=== PATIENT | female | born 1980 | race Caucasian/White ===

== ENCOUNTER → 2017-07-19 | Outpatient (CLI) | payer BC ==
[~2017-07-19] MED LIST: PROG100C16 PO
[2017-07-19 11:10] LABS: BASOPHILS # (AUTO) 0.01 x10^3/uL (0-0.1); BASOPHILS % (AUTO) 0 % (0-1); EOSINOPHILS # (AUTO) 0.03 x10^3/uL (0-0.4); EOSINOPHILS % (AUTO) 0 % (1-7); LYMPHOCYTES # (AUTO) 0.96 x10^3/uL (1-3.4); LYMPHOCYTES % (AUTO) 11 % (22-44); MD NO; MEAN CORPUSCULAR HEMOGLOBIN 31.3 pg (27.0-34.8); MEAN CORPUSCULAR HGB CONC 33.4 g/dL (32.4-35.8); MEAN CORPUSCULAR VOLUME 93.7 fL (80-100); MEAN PLATELET VOLUME 9.4 fL (7.4-10.4); MONOCYTES # (AUTO) 0.39 x10^3/uL (0.2-0.8); MONOCYTES % (AUTO) 5 % (2-9); NEUTROPHILS # (AUTO) 7.34 x10^3/uL (1.8-6.8); NEUTROPHILS % (AUTO) 84 % (42-75); PLATELET COUNT 180 x10^3/uL (130-400); RED BLOOD COUNT 4.53 x10^6/uL (3.82-5.3); RED CELL DISTRIBUTION WIDTH 13.4 % (9.6-15.2)
== END | disposition home or self-care (01) ==
LOC: STAR 10:07
PROVIDERS: ATTEND Obstetrics & Gynecology
DX: Z01.818 Encounter for other preprocedural examination (principal); N92.0 Excessive and frequent menstruation with regular cycle
CPT/HCPCS: 36415; 84703; 85025

== ENCOUNTER 2017-07-24 08:14 | Day surgery (SDC) | payer BC ==
[~2017-07-24] VITALS: Ht 167.6 cm; Wt 55.4 kg
[2017-07-24 08:54] VITALS: BP 106/65
[2017-07-24] MEDS ORDERED: BUPIVACAINE/PF 0.25% ONE (09:13)
[2017-07-24] MEDS ORDERED: EPINEPHRINE 1 MG/ML, 1ML ONE (09:13)
[2017-07-24] MEDS ORDERED: MIDAZOLAM 1 MG/ML, 2ML ONE (09:45)
[2017-07-24] MEDS ORDERED: FENTANYL PF 250 MCG/5ML ONE (09:46)
[2017-07-24] MEDS ORDERED: PROPOFOL 10 MG/ML, 20ML ONE (09:46)
[2017-07-24] MEDS ORDERED: DEXAMETHASONE 4 MG/ML, 1ML ONE ×2 (09:47)
[2017-07-24] MEDS ORDERED: ONDANSETRON 2MG/ML, 2ML ONE (09:47)
[2017-07-24] MEDS ORDERED: PROMETHAZINE 25 MG/ML, 1ML IV PRN (10:30)
[2017-07-24] MEDS ORDERED: ACETAMINOPHEN 325 MG TABLET PO PRN (10:30)
[2017-07-24] MEDS ORDERED: MEPERIDINE/PF 25MG/0.5ML IVPush PRN (10:30)
[2017-07-24] MEDS ORDERED: HYDROmorphone 1 MG/ML, 1ML IV PRN (10:30)
[2017-07-24] MEDS ORDERED: morphine SULFATE 10 MG/ML, 1ML IV PRN ×2 (10:30→13:00)
[2017-07-24] MEDS ORDERED: OXYcodone 5 MG/5 ML ORAL.SOL UDC PO PRN ×2 (10:30→13:00)
[2017-07-24] MEDS ORDERED: FENTANYL PF 100 MCG/2ML IV PRN (10:30)
[2017-07-24] MEDS ORDERED: ONDANSETRON 2MG/ML, 2ML IVPush PRN (10:30)
[2017-07-24] MEDS ORDERED: PROMETHAZINE 12.5 MG SUPP PR PRN (10:30)
[2017-07-24] MEDS ORDERED: CLINDAMYCIN 150 MG/ML, 6ML ONE (10:34)
[2017-07-24] MEDS ORDERED: KETOROLAC 30 MG/1 ML ONE (10:44)
[2017-07-24] MEDS ORDERED: BUPIVACAINE/PF-EPI 0.25% 1:200K INFIL ONE (11:10)
[2017-07-24] MEDS ORDERED: SILVER NITRATE STICK TP ONE (11:20)
[2017-07-24] MEDS ORDERED: OXYcodone 5 MG/5 ML ORAL.SOL UDC ONE (11:55)
[2017-07-24] MEDS ORDERED: OXYC-302 PO (12:34)
[2017-07-24] MEDS ORDERED: IBUP200T49 PO (12:35)
[2017-07-24] MEDS ORDERED: DOCU-131 PO (12:35)
[2017-07-24] MEDS ORDERED: OXYcodone/APAP 5/325MG TABLET PO PRN (13:00)
[2017-07-24] MEDS ORDERED: LACTATED RINGERS 1,000 ML IV SCH (13:00)
[2017-07-24] MEDS ORDERED: IBUPROFEN 600 MG TABLET PO SCH (16:00)
== END 2017-07-24 12:50 | disposition home or self-care (01) ==
LOC: 4NOR 08:14 → OR 08:14
PROVIDERS: ATTEND Obstetrics & Gynecology
DX: N93.8 Other specified abnormal uterine and vaginal bleeding (principal); N84.0 Polyp of corpus uteri; Z98.890 Other specified postprocedural states; Z88.0 Allergy status to penicillin; Z88.8 Allergy status to other drugs, medicaments and biological substances
CPT/HCPCS: 58563; J0171; J1100; J1885; J2250; J2405; J2704; J3010; J3490